=== PATIENT | female | born 1975 | race Two or more races ===

== ENCOUNTER 2023-07-14 14:11 | Emergency (ER) | payer OTHER ==
[~2023-07-14] VITALS: Ht 165.1 cm; Wt 63.5 kg
[2023-07-14] MEDS ORDERED: GUAIFENESIN/DEXTROMETHORPHAN 100 MG/5 ML ML PO ONE (15:45)
[2023-07-14] MEDS ORDERED: METHYLPREDNISOLONE SOD SUCC 125 MG VIAL IV ONE (15:45)
[2023-07-14] MEDS ORDERED: ACETAMINOPHEN 500 MG GEL..CAP PO ONE (15:45)
[2023-07-14] MEDS ORDERED: IPRATROPIUM/ALBUTEROL SULFATE 3 ML AMPUL.NEB IH SCH (15:45)
[2023-07-14 17:01] LABS: HEMATOCRIT 40.4 % (36.0-45.00); MEAN CELL VOLUME 89.9 fL (80.00-100.00); MEAN CORPUSCULAR HEMOGLOBIN 31.1 pg (27.00-32.0); MEAN CORPUSCULAR HGB CONC 34.6 g/dl (32.0-36.0); PLATELET COUNT 314 K/uL (150-450); RED CELL DISTRIBUTION WIDTH 12.6 % (11.5-14.5)
[2023-07-14] MEDS ORDERED: ALBUTEROL1.25 MG/3 IH (19:12)
[2023-07-14] MEDS ORDERED: BUDESONIDE0.5 MG/2 M IH (19:12)
[2023-07-14] MEDS ORDERED: OSEL75CA PO (19:12)
[2023-07-14] MEDS ORDERED: ADVAIR HFA 115/12 GM IH (19:12)
[2023-07-14] MEDS ORDERED: TUSSIN DM SYRU118 ML PO (19:13)
== END 2023-07-14 19:41 | disposition home or self-care (01) ==
LOC: ER 14:11
PROVIDERS: Nurse Practitioner Family
DX: J10.1 Influenza due to other identified influenza virus with other respiratory manifestations (principal); J45.909 Unspecified asthma, uncomplicated; Z20.822 Contact with and (suspected) exposure to COVID-19